=== PATIENT | male | born 1955 | race Caucasian/White ===

== ENCOUNTER 2019-01-30 07:09 | Outpatient (CLI) | payer OTHER ==
--- NOTE | 2019-01-31 18:26 | MRI Report ---
Reason: PAIN IN LEFT ANKLE JOINTS Procedure Date: 01/30/2019 Accession Number: [id number] / [id number] Procedure: MRI - Ankle LT W/O CPT Code: FULL RESULT: EXAM: LEFT ANKLE/HINDFOOT MRI WITHOUT CONTRAST EXAM DATE: 01/30/2019 08:17 AM. CLINICAL HISTORY: Pain in left ankle joints. COMPARISON: None. TECHNIQUE: Multiplanar, multisequence T1-weighted and fluid-sensitive sequences of the ankle/hindfoot without contrast. Other: None. FINDINGS: Bones: 0.5 cm focus of bone marrow edema at the medial talar dome with overlying deep partial to full-thickness cartilage loss. No free osteochondral fragment. Lobulated 2 cm likely intraosseous ganglion with adjacent bone marrow edema in the proximal and plantar cuboid. Similar subtle lobulated fluid sensitive hyperintense signal normality with subtle adjacent edema in the calcaneus at the angle of [place]. Minimal degenerative edema at the talonavicular and tarsal metatarsal joints. Articular Cartilage: Diffuse shallow partial-thickness cartilage loss tibiotalar joint. Small region deep partial to full-thickness loss medial talar dome. Partial-thickness cartilage loss at the navicular cuneiforms and tarsometatarsal joints. Ligaments: Sequelae of mild sprains at the intact anterior and posterior tibiofibular and calcaneofibular ligaments. Diffusely attenuated appearance anterior talofibular ligament. Partial-thickness tear posterior talofibular ligament. The deep and superficial deltoid and spring ligaments are intact. Anterior Tendons: The tibialis anterior, extensor hallucis longus, and extensor digitorum longus tendons are unremarkable. Medial Tendons: Mild tibialis posterior tendinopathy. Flexor digitorum longus and flexor hallucis longus tendons are unremarkable. Lateral Tendons: Mild peroneus longus and brevis tendinopathy. Focal longitudinal split tear peroneus brevis tendon at the fibular tip. Achilles Tendon: Mild tendinopathy. Musculature: Moderate to severe fatty atrophy in the abductor hallucis muscle. Mild fatty streaking partially visualized in the soleus muscle. No edema. Other: Minimal tibiotalar joint effusion with 1.6 cm ovoid ganglion extending posteriorly from the posterolateral margin. 1.3 x 0.8 x 1.4 cm ganglion at the dorsal and lateral aspect of the sinus tarsi. 1.0 x 0.8 x 3.4 cm ganglion at the plantar lateral aspect calcaneal cuboid joint. Tarsal tunnel unremarkable. Mild thickening of the central band plantar fascia. The subcutaneous tissues are unremarkable. IMPRESSION: 1. Lobulated foci of signal normality with adjacent bone marrow edema in the calcaneus and to a lesser extent cuboid, suggestive of intraosseous ganglia. 2. 3.5 cm ganglion at the plantar lateral aspect calcaneal cuboid joint. 3. 1.5 cm ganglion at the dorsal and lateral aspect sinus tarsi. 4. Sequelae of old sprains lateral ligamentous structures with near complete to complete disruption anterior talofibular ligament. 5. Mild peroneus longus and brevis tendinopathy with focal split tear peroneal brevis tendon. 6. Mild tibialis posterior tendinopathy. 7. Mild Achilles tendinopathy. 8. 0.5 cm osteochondral lesion medial talar dome without evidence of instability. 9. Minimal degenerative changes in the midfoot. 10. Moderate to severe fatty atrophy in the abductor hallucis muscle. This may be due to old trauma versus neurogenic. RADIA
== END 2019-01-30 07:10 | disposition home or self-care (01) ==
LOC: DI 07:09
PROVIDERS: ATTEND General Practice
DX: M67.472 Ganglion, left ankle and foot (principal); S93.492A Sprain of other ligament of left ankle, initial encounter; S96.812A Strain of other specified muscles and tendons at ankle and foot level, left foot, initial encounter; M89.9 Disorder of bone, unspecified; M19.072 Primary osteoarthritis, left ankle and foot; M62.572 Muscle wasting and atrophy, not elsewhere classified, left ankle and foot

== ENCOUNTER 2022-12-06 10:51 | Day surgery (SDC) | payer MEDICARE, OTHER ==
[2022-12-06] MEDS ORDERED: LACTATED RINGERS 1,000 ML IV ONE ×2 (10:54→11:52)
--- NOTE | 2022-12-06 11:21 | HISTORY & PHYSICAL EXAMINATION ---
Chief Complaint - Chief Complaint Chief Complaint: here for colonoscopy History of Present Illness - History Obtained From Records Reviewed: yes History obtained from: pt Exam Limitations: none - History of Present Illness HPI Comment/Other: recent blood on stool and tissue History - Past Medical History Cardiovascular: reports: None Respiratory: reports: None Endocrine/Autoimmune: reports: None GI: reports: Other : reports: None HEENT: reports: None Psych: reports: None Musculoskeletal: reports: None Derm: reports: None MRSA Hx?: No - Past Surgical History General: reports: Colonoscopy Meds/Allgy - Home Medications Home Medications: Ambulatory Orders Medication Instructions Recorded Confirmed Multivitamin 1 tab PO DAILY 12/06/22 12/06/22 - Allergies Allergies/Adverse Reactions: Allergies Allergy/AdvReac Type Severity Reaction Status Date / Time No Known Drug Allergies Allergy Verified 12/05/22 12:47 Review of Systems - Other Findings Other Findings: 10 pt ros as above otherwise unremarkable Exam - Vital Signs Reviewed Vital Signs: Yes Vital Signs: Vital Signs x48h Temp Pulse Resp BP Pulse Ox 12/06/22 11:01 36.3 C L 97 16 142/91 H 99 - Physical Exam General Appearance: positive: No acute distress, Alert Eyes Bilateral: positive: PERRL, EOMI ENT: positive: No signs of dehydration Neck: positive: No JVD, Trachea midline Respiratory: positive: No respiratory distress Cardiovascular: positive: Regular rate & rhythm Abdomen: positive: Non-tender, No distention Neurologic/Psychiatric: positive: Oriented x3 Conclusion/Plan - Problem List (1) Colon cancer screening Conclusion/Plan: blood on stool. plan diagnostic colonoscopy. parq held and consent obtained
[2022-12-06] MEDS ORDERED: PROPOFOL 500 MG/50 ML 500 MG/50 ML VIAL ONE ×2 (11:25→11:38)
--- NOTE | 2022-12-06 11:29 | ANESTHESIA ---
Pre-Anesthesia VS, & Labs - Diagnosis recent bloody stool - Procedure colonoscopy Vital Signs: Temp Pulse Resp BP Pulse Ox O2 Flow Rate 36.3 C L 97 16 142/91 H 99 12/06/22 11:01 12/06/22 11:01 12/06/22 11:01 12/06/22 11:01 12/06/22 11:01 Height: 5 ft 10 in Weight (kg): 72.5 kg Body Mass Index: 22.9 BMI Classification: Normal - NPO >8 hours - Lab Results Lab results reviewed: Yes Home Medications and Allergies Home Medications: Ambulatory Orders Multivitamin 1 tab PO DAILY 12/06/22 Multivitamin 1 tab PO DAILY 12/06/22 Allergies/Adverse Reactions: Allergies Allergy/AdvReac Type Severity Reaction Status Date / Time No Known Drug Allergies Allergy Verified 12/05/22 12:47 Anes History & Medical History - Anesthetic History Anesthesia Complications: reports: No previous complications Family history of Anesthesia Complications: Denies Family history of Malignant Hyperthermia: Denies - Medical History Cardiovascular: reports: None Pulmonary: reports: None Gastrointestinal: reports: Other (bloody stool) Urinary: reports: None Neuro: reports: None Musculoskeletal: reports: None Endocrine/Autoimmune: reports: None Blood Disorders: reports: None Skin: reports: None Smoking Status: Never smoker - Surgical History General: reports: Colonoscopy Exam General: Alert, Oriented x3, Cooperative Dental: WNL Mouth Openin Fingerbreadth Mallampati classification: I Thyromental Distance: 4-6 cm Respiratory: Lungs clear Cardiovascular: Regular rate Plan Anesthesia Type: MAC Consent for Procedure(s) Verified and Reviewed: Yes Code Status: Attempt Resuscitation ASA classification: 1-Healthy patient Is this case an emergency?: No
[2022-12-06] MEDS ORDERED: PROPOFOL 200 MG/20 ML VIAL IVP ONE (11:48)
[2022-12-06 12:18] VITALS: BP 113/73
--- NOTE | 2022-12-06 14:06 | ANESTHESIA POST OP EVALUATION ---
Anesthesia Post Eval - Post Anesthesia Eval Vitals: Last Vital Signs Temp 36.3 C L 12/06/22 11:53 Pulse 70 12/06/22 12:13 Resp 16 12/06/22 12:13 BP 113/73 12/06/22 12:13 Pulse Ox 100 12/06/22 12:13 O2 Flow Rate CV Function Including HR & BP: Stable Pain Control: Satisfactory Nausea & Vomiting: Negative Mental Status: Baseline Respiratory Status: Airway Patent Hydration Status: Satisfactory Anesthesia Complications: None
== END 2022-12-06 10:52 | disposition home or self-care (01) ==
LOC: SDS 10:51
PROVIDERS: ATTEND Surgery
PROC: 0DBN8ZZ Excision of Sigmoid Colon, Via Natural or Artificial Opening Endoscopic (ICD-10-PCS; principal; 2022-12-06 12:15)
DX: K92.1 Melena (principal); K63.5 Polyp of colon; K64.9 Unspecified hemorrhoids
CPT/HCPCS: 45380; J7120

== ENCOUNTER 2023-04-09 10:15 | Emergency (ER) | payer MEDICARE, OTHER ==
[2023-04-09] MEDS ORDERED: MORPHINE 2 MG/ML CARPUJECT IVP STA (10:33)
[2023-04-09] MEDS ORDERED: SODIUM CHLORIDE 0.9% 1,000 ML IV STA (10:33)
[2023-04-09] MEDS ORDERED: ONDANSETRON 4 MG/2 ML VIAL IVP STA (10:33)
--- NOTE | 2023-04-09 10:35 | ED Physician Documentation ---
PD HPI ABD PAIN - Stated complaint Stated Complaint: STOMACH PX,N/V - Chief complaint Chief Complaint: Abd Pain - History obtained from History obtained from: Patient - Additional information Additional information: Patient is a 68-year-old male with no significant prior medical history presenting for evaluation of mid abdominal cramping that started approximately 2 hours ago with associated nausea. He reports having a bowel movement just prior to arrival which did not help relieve his symptoms. Denies blood or dark stools. Denies history of prior abdominal surgeries. Had a brown muffin this morning which she tolerated well. No fever, chest pain or shortness of air. Denies any pain in the back, dysuria or hematuria. Denies history of similar symptoms in the past. Review of Systems Constitutional: denies: Fever Cardiac: denies: Chest pain / pressure Respiratory: denies: Dyspnea GI: reports: Abdominal Pain, Nausea. denies: Vomiting, Diarrhea : denies: Dysuria Musculoskeletal: denies: Back pain PD PAST MEDICAL HISTORY - Past Medical History Cardiovascular: None Respiratory: None Neuro: None Endocrine/Autoimmune: None GI: Other (bloody stool) : None HEENT: None Psych: None Musculoskeletal: None Derm: None - Past Surgical History General: Colonoscopy - Present Medications Home Medications: Ambulatory Orders Medication Instructions Recorded Confirmed No Known Home Medications 04/09/23 04/09/23 - Allergies Allergies/Adverse Reactions: Allergies Allergy/AdvReac Type Severity Reaction Status Date / Time No Known Drug Allergies Allergy Verified 12/05/22 12:47 - Social History Smoking Status: Never smoker PD ED PE NORMAL - General General: Alert and oriented X 3, No acute distress, Well developed/nourished - HEENT HEENT: Atraumatic, Moist mucous membranes, Pharynx benign - Neck Neck: Supple, no meningeal sign - Cardiac Cardiac: RRR, No murmur - Respiratory Respiratory: No respiratory distress, Clear bilaterally - Abdomen Abdomen: Normal bowel sounds, Soft, Non distended, Other (Mild periumbilical tenderness to palpation) - Back Back: No CVA TTP - Derm Derm: Warm and dry - Neuro Neuro: Normal speech Results - Vitals Vitals: Vital Signs - 24 hr 04/09/23 04/09/23 04/09/23 10:17 10:53 12:07 Temperature 36.2 C L Heart Rate 67 58 L 73 Respiratory 18 20 18 Rate Blood Pressure 163/88 H 144/82 H O2 Saturation 100 100 100 04/09/23 04/09/23 04/09/23 12:30 13:20 13:37 Temperature 36.6 C Heart Rate 77 71 Respiratory 17 18 Rate Blood Pressure 131/75 H 119/75 O2 Saturation 99 100 Oxygen O2 Source Room air - Labs Labs: Laboratory Tests 04/09/23 04/09/23 04/09/23 10:38 11:07 13:06 WBC 3.7 L RBC 4.79 Hgb 15.1 Hct 44.1 MCV 92.1 MCH 31.5 H MCHC 34.2 RDW 12.6 Plt Count 247 MPV 9.7 Neut # (Auto) 1.3 L Lymph # (Auto) 1.7 [place] # (Auto) 0.3 Eos # (Auto) 0.3 Baso # (Auto) 0.1 Absolute Nucleated RBC 0.00 Nucleated RBC % 0.0 Sodium 138 Potassium 4.6 H Chloride 106 Carbon Dioxide 24 Anion Gap 8.0 BUN 18 Creatinine 0.8 Estimated GFR (MDRD) 96 Glucose 91 Calcium 9.3 Total Bilirubin 0.5 AST 30 ALT 19 Alkaline Phosphatase 52 Total Protein 6.4 Albumin 4.1 Globulin 2.3 Albumin/Globulin Ratio 1.8 Lipase 13 Urine Color YELLOW Urine Clarity CLEAR Urine pH 7.0 Ur Specific [place] 1.010 Urine Protein NEGATIVE Urine Glucose (UA) NEGATIVE Urine Ketones TRACE Urine Occult Blood NEGATIVE Urine Nitrite NEGATIVE Urine Bilirubin NEGATIVE Urine Urobilinogen 0.2 (NORMAL) Ur Leukocyte Esterase NEGATIVE Ur Microscopic Review NOT INDICATED Urine Culture Comments NOT INDICATED PD Medical Decision Making - ED course Complexity details: reviewed results, re-evaluated patient, d/w patient ED course: Patient is a 68-year-old male presenting for evaluation of generalized abdominal pain starting this morning with associated nausea. Vital signs are stable. Labs reviewed including CBC, chemistries and urine analysis without significant findings. CT of the abdomen and pelvis was obtained which shows periportal edema but otherwise no significant findings and nothing to explain his symptoms today. Patient did receive IV morphine along with IV fluids and Zofran. He states that the morphine did not really help with this pain. Additional narcotic pain medication was ordered but patient states that his pain suddenly resolved without needing this so he declined a second dose of pain medication. On repeat exam he has no tenderness. He is ambulating without any difficulty. He feels completely back to his usual self. I did review his CT with him including findings in the liver and need for close follow-up with the primary care provider. Patient also counseled on concerning symptoms to return for. 1240 - Patient declined Dilaudid as his pain resolved prior to getting it. He states that all of a sudden his pain is completely gone away. On repeat abdominal exam he still has no tenderness. Departure - Departure Disposition: Home, Self Care Clinical Impression: Generalized abdominal discomfort, Abnormal CT of the abdomen Condition: Stable Instructions: ED Abdominal Pain Unkn Cause Male Comments: You were evaluated for abdominal pain. Your labs do not show any significant abnormalities and that your CT scan also does not reveal a source for your pain. There is a mention of a condition called periportal edema in the liver. You should have follow-up with your primary care provider to discuss this finding and to see if you need more testing for The cause of this. Please call to establish care with a primary care doctor. Return to the emergency department with any worsening symptoms. CT ABD/PELVIS IMPRESSION: 1. Note is made of periportal edema in the liver. There are no focal liver masses. There are no dilated ducts. 2. Prostatomegaly. 3. No acute abdominal process noted. Forms: PCP List Discharge Date/Time: 04/09/23 13:38
[2023-04-09 10:42] LABS: BASOPHILS # (AUTO) 0.1 10^3/uL (0.0-0.1); BASOPHILS % (AUTO) 2.7 %; EOSINOPHILS # (AUTO) 0.3 10^3/uL (0.0-0.7); EOSINOPHILS % (AUTO) 7.3 %; HCT - HEMATOCRIT 44.1 % (42.0-52.0); HGB - HEMOGLOBIN 15.1 g/dL (14.0-18.0); LYMPHOCYTES # (AUTO) 1.7 10^3/uL (1.5-3.5); LYMPHOCYTES % (AUTO) 46.6 %; MEAN CORPUSCULAR HEMOGLOBIN 31.5 pg (27.0-31.0); MEAN CORPUSCULAR HGB CONC 34.2 g/dL (32.0-36.0); MEAN CORPUSCULAR VOLUME 92.1 fL (80.0-94.0); MEAN PLATELET VOLUME 9.7 fL (7.4-11.4); MONOCYTES # (AUTO) 0.3 10^3/uL (0.0-1.0); MONOCYTES % (AUTO) 8.1 %; NEUTROPHILS # (AUTO) 1.3 10^3/uL (1.5-6.6); NEUTROPHILS % (AUTO) 35.3 %; PLT - PLATELET COUNT 247 10^3/uL (130-450); RED BLOOD COUNT 4.79 10^6/uL (4.70-6.10); RED CELL DISTRIBUTION WIDTH 12.6 % (12.0-15.0); WHITE BLOOD COUNT 3.7 x10^3/uL (4.8-10.8)
[2023-04-09 11:26] LABS: ALBUMIN 4.1 g/dL (3.2-5.5)
[2023-04-09 11:27] LABS: ALBUMIN/GLOBULIN RATIO 1.8 (1.0-2.2); BILIRUBIN,TOTAL 0.5 mg/dL (0.2-1.0); CALCIUM 9.3 mg/dL (8.5-10.3); CREATININE 0.8 mg/dL (0.6-1.3); POTASSIUM 4.6 mmol/L (3.5-4.5); TOTAL PROTEIN 6.4 g/dL (6.4-8.9)
[2023-04-09] MEDS: HYDROmorphone 1 MG/ML CARPUJECT IVP STA ×2 (11:35→11:59)
--- NOTE | 2023-04-09 12:21 | CT Report ---
PROCEDURE: ABDOMEN/PELVIS W INDICATIONS: mid abd pain/nausea CONTRAST: 100ml Omni 300 TECHNIQUE: After the administration of intravenous contrast, 5 mm thick sections acquired from the diaphragms to the symphysis. 5 mm thick coronal and sagittal reformats were acquired. For radiation dose reducti on, the following was used: automated exposure control, adjustment of mA and/or kV according to robert ent size. COMPARISON: None FINDINGS: Image quality: Excellent. Lung bases and heart: Unremarkable. Liver: No solid mass.. Periportal edema Gallbladder and biliary tree: No radiopaque stones or wall thickening. No biliary dilation. Spleen: No splenomegaly. Pancreas: No pancreatic ductal dilation. Adrenals: No adrenal nodule. Kidneys and ureters: No hydronephrosis. No renal cystic lesion which requires follow up. No solid mas s. Bowel and peritoneum: No bowel distension. No pathologic free fluid. Lymph nodes: No central or retroperitoneal adenopathy. Vessels: No infrarenal aortic aneurysm. PELVIS Reproductive organs: Moderately enlarged prostate. Bladder: No abnormal wall thickening, accounting for underdistension. Pelvic lymph nodes: No pelvic adenopathy by size criteria. Bones: No aggressive osseous abnormality. Other: No significant ventral or inguinal hernia. IMPRESSION: 1. Note is made of periportal edema in the liver. There are no focal liver masses. There are no dilat ed ducts. 2. Prostatomegaly. 3. No acute abdominal process noted. Reviewed by: Cullen Telles MD on 04/09/2023 12:19 PM PDT Approved by: Cullen Telles MD on 04/09/2023 12:19 PM PDT Station ID: [id number]
[2023-04-09] MEDS ORDERED: iohexoL-300 100 ML VIAL IVP ONE (13:10)
[2023-04-09 13:15] LABS: BILIRUBIN,URINE NEGATIVE (NEGATIVE); GLUCOSE, URINE (UA) NEGATIVE (NEGATIVE); KETONES,URINE (UA) TRACE mg/dL (NEGATIVE); LEUKOCYTE ESTERASE, URINE NEGATIVE (NEGATIVE); NITRITE,URINE NEGATIVE (NEGATIVE); OCCULT BLOOD,URINE NEGATIVE (NEGATIVE); PROTEIN,URINE NEGATIVE (NEGATIVE); UROBILINOGEN,URINE 0.2 (NORMAL) E.U./dL (NORMAL)
[2023-04-09 13:17] LABS: CLARITY,URINE CLEAR (CLEAR)
[2023-04-09 13:23] VITALS: BP 119/75; O2SAT 100
== END 2023-04-09 13:38 | disposition home or self-care (01) ==
LOC: ED 10:15
DX: R10.84 Generalized abdominal pain (principal); R11.0 Nausea; R93.2 Abnormal findings on diagnostic imaging of liver and biliary tract
CPT/HCPCS: 36415; 74177; 80053; 81003; 83690; 85025; 96374; 96375; 99284; Q9967; 81001; 87086